=== PATIENT | male | born 1955 | race Asian ===

== ENCOUNTER 2016-12-15 09:12 | Emergency (ER) | payer OTHER, MEDICAID ==
[2016-12-15] MEDS ORDERED: PROPARACAINE 0.5% 15 ML OPHT DROP ONE (09:58)
[2016-12-15 10:22] VITALS: PULSE 78
--- NOTE | 2016-12-15 10:48 | EDPHY ---
H & P Time Seen by Provider: 12/15/16 09:52 HPI/ROS: CHIEF COMPLAINT: Right eye pain HISTORY OF PRESENT ILLNESS: 61-year-old male presents to the emergency department complaining of ongoing pain in his right eye. The patient is scheduled for corneal transplant January 05, 2017. He saw Dr. Jose Johnson, compressor operator portable, 2 days ago and was given a prescription for Besivance eyedrops. The patient states that his insurance did not cover this medication and therefore he has not started it. He continues to have ongoing right eye pain. He has had chronic double vision in his right eye. He does have some tearing from the right eye. No symptoms in the left eye. No other reported recent trauma. ROS: Denies foreign body sensation denies symptoms in the left eye, denies acute trauma. Past Medical/Surgical History: Chronic right eye pain scheduled for corneal transplant January 05, 2017 Social History: and lives in [place] Smoking Status: Light smoker Physical Exam: Pupils:equal round and reactive to light EOMI Lids: no edema or swelling Skin: no proptosis, no periorbital erythema or swelling, no vesicles Conjunctivae: not injected, no discharge Cornea: Cornea appears diffusely cloudy compared to the left side. Alcaine drops were instilled into the left eye. Jose Manuel-Pen readings were 22, 27, and 19 in the right eye. Anterior chamber:normal, no hyphema or hypopyon Constitutional: Initial Vital Signs Temperature (C) 36.7 C 12/15/16 09:15 Heart Rate 78 12/15/16 09:15 Respiratory Rate 16 12/15/16 09:15 Blood Pressure 157/93 H 12/15/16 09:15 O2 Sat (%) 96 12/15/16 09:15 O2 Delivery Mode Room Air Allergies/Adverse Reactions: No Known Allergies Allergy (Verified 07/08/14 08:47) Home Medications: Medication Instructions Recorded Glyburide [Glyburide 1.25 mg] 7.5 mg PO BIDMEAL 02/18/12 Aspirin [Aspirin 81mg (*)] 81 mg PO DAILY 07/08/14 Herbals/Supplements -Info Only 1 ea PO DAILY 07/08/14 Lisinopril [Zestril 2.5 mg (*)] 2.5 mg PO DAILY 07/08/14 Metformin HCl [Metformin 1000 mg] 1,000 mg PO BID 07/08/14 [place]-3 Fatty Acids/Fish Oil [Fish 2 each PO DAILY 07/08/14 Oil 1,000 mg Softgel] Simvastatin [Zocor] 5 mg PO HS 07/08/14 Hydrocodone/APAP 5/325 [Cactus 2 tab PO Q4 PRN #14 tab 07/09/14 5/325 (*)] MDM/Departure - [facility] ED Course/Re-evaluation: Jose Manuel-Pen readings for right eye 22, 27, [address] Jose Johnson, compressor operator portable who saw the patient 2 days ago. He recommended that the patient follow up with his eye surgeon in [place], Dr. Carlos Dominguez. Dr. Jose Johnson advised that the patient see Dr. Carlos Dominguez this week for follow-up. The medication that was prescribed was not covered by his insurance and therefore the patient was given Ocuflox drops in the emergency department. The patient will use 1-2 drops 4 times a day to the right eye. He will follow up with Dr. Carlos Dominguez this week. The patient was comfortable with this plan. Dr. Johnson was aware of the Jose Manuel-Pen readings in the emergency department. He states that he obtained similar numbers when he was in the office 2 days ago. He states that the numbers are likely for slightly falsely high because the patient has a decompensating cornea. - Depart Disposition: Home, Routine, Self-Care Clinical Impression: Pain, eye, right Condition: Good Instructions: Eye Pain (ED) Additional Instructions: Ocuflox drops 1-2 drops 4 times daily to the right eye. Follow up with Dr. Carlos Dominguez this week to recheck. Return if he developed any visual changes, worsening pain or change in symptoms. Referrals: Jose Johnson MD [Medical Doctor] - As per Instructions CARLOS DOMINGUEZ [Non Staff Provider ()] - 1-2 days without fail
[2016-12-15] MEDS ORDERED: OFLOXACIN 0.3% SOLN PREPACK OPHT.BTL TAKEHOME ONE (10:54)
[2016-12-15 11:25] VITALS: BP 148/91; RESP 17; TEMP 98.8; O2SAT 95
== END 2016-12-15 11:24 | disposition home or self-care (01) ==
DX: H57.11 Ocular pain, right eye (principal); F17.200 Nicotine dependence, unspecified, uncomplicated; Z79.82 Long term (current) use of aspirin

== ENCOUNTER → 2018-08-30 | Outpatient (CLI) | payer OTHER, MEDICAID | LOC: FIMAGING 11:48 | PROVIDERS: ATTEND Family Medicine | DX: J40 Bronchitis, not specified as acute or chronic (principal) ==